=== PATIENT | male | born 1990 | race Caucasian/White ===

== ENCOUNTER 2021-08-16 18:14 | Emergency (ER) | payer BC ==
[2021-08-16 18:34] VITALS: BP 145/98; PULSE 109
--- NOTE | 2021-08-16 19:15 | EDM.PDOC ---
ED HPI GENERAL MEDICAL PROBLEM - General Chief Complaint: ENT Problem Stated Complaint: SOB EAR PAIN Time Seen by Provider: 08/16/21 18:43 Source of Information: Reports: Patient History Limitations: Reports: No Limitations - History of Present Illness INITIAL COMMENTS - FREE TEXT/NARRATIVE: Mr. 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 He then woke up this morning with significant pain in his right ear and now complete deafness in his right ear, with even worse tinnitus than usual. He also states that he feels off-balance when he ambulates, and his cough is now productive of greenish-yellowish sputum. No recent fever or chills. No dyspnea, although taking a deep breath induces a cough. The patient states that he has not taken any [id number] or home remedies to address his symptoms since their onset. At triage, the patient's initial BP was found to be mildly elevated at 145/98, with tachycardia of 109 bpm. He has a fever of 100.7 degrees. His oxygen saturation is 100% on room air. He appears to be relatively comfortable, in no acute distress. Prior to Friday, the patient denies having a recent fever, chills, sore throat, ear pain, nasal or sinus congestion, cough, dyspnea, chest pain, palpitations, nausea, vomiting, constipation, diarrhea, abdominal pain, urinary symptoms, recent weight gain or weight loss, recent bloody bowel movements or black bowel movements, recent joint aches, headaches, or rashes. The patient does not recall the name of his PCP in [place]. He has also seen Ramya Bishop NP, in [place], [place]. He has not received a COVID vaccination, nor an influenza vaccination this season. Right Ear Pain Score (Numeric/FACES): 8 - Related Data Allergies Allergy/AdvReac Type Severity Reaction Status Date / Time Penicillins Allergy Cannot Verified 08/16/21 18:35 Remember Sulfa (Sulfonamide Allergy Cannot Verified 08/16/21 18:35 Antibiotics) Remember Home Meds: Home Meds Cefdinir 1 cap PO Q12H #19 capsule 08/16/21 [Rx] Past Medical History HEENT History: Reports: Hard of Hearing (60% hearing loss left ear, 30% hearing loss right ear due to pressure-related injury around 2015) Cardiovascular History: Reports: High Cholesterol (untreated) Musculoskeletal History: Reports: Fracture (fingers, toes, right arm, left ankle, mandible, right foot) Endocrine/Metabolic History: Reports: Other (See Below) (Low testosterone) - Infectious Disease History Infectious Disease History: Reports: Novel Coronavirus - Past Surgical History HEENT Surgical History: Reports: Tonsillectomy, Other (See Below) (Mandible wired) Dermatological Surgical History: Reports: Skin Graft (right foot) Social & Family History - Tobacco Use Tobacco Use Status *Q: Former Tobacco User Years of Tobacco use: 11 Packs/Tins Daily: 3 Month/Year Tobacco Last Used: Quit 2019 Tobacco Use Comment: Started smoking 2008 - Caffeine Use Caffeine Use: Reports: Coffee - Alcohol Use Alcohol Use History: Yes Alcohol Use Frequency: Socially (occasionally to excess) - Recreational Drug Use Recreational Drug Use: Yes Drug Use in Last 12 Months: No Recreational Drug Type: Reports: Marijuana/Hashish (last smoked around 2009) - Living Situation & Occupation Living situation: Reports: , Alone Occupation: Employed ([employer]) ED ROS ENT - Review of Systems Review Of Systems: Comprehensive ROS is negative, except as noted in HPI. ED EXAM, ENT - Physical Exam Exam: See Below Exam Limited By: No Limitations General Appearance: Alert, WD/WN, No Apparent Distress Eye Exam: Bilateral Eye: EOMI, Normal Inspection Ears: Normal External Exam, Normal Canal, Other (Bilateral downing tympanic membranes with slightly flattened cones of light, but no erythema or scarring seen. Right canal slightly erythematous, but no exudates. Right mastoid process considerably tender.) Nose: Normal Inspection, No Blood, Clear Rhinorrhea Mouth/Throat: Normal Inspection, Normal Gums, Normal Lips, Normal Teeth, Pharyngeal Erythema (mildly increased erythema to the posterior oropharynx) Head: Atraumatic, Normocephalic Neck: Normal Inspection, Supple, Non-Tender, Full Range of Motion. No: Lymphadenopathy (L), Lymphadenopathy (R) Respiratory/Chest: No Respiratory Distress, Lungs Clear, Normal Breath Sounds, No Accessory Muscle Use. No: Decreased Breath Sounds, Crackles, Rhonchi, Wheezing, Prolonged Expiration Cardiovascular: Normal Peripheral Pulses, No Edema, No Gallop, No JVD, No Murmur, No Rub, Tachycardia (regular) GI/Abdominal: Normal Bowel Sounds, Soft, Non-Tender, No Organomegaly, No Distention, No Abnormal Bruit, No Mass Back: Normal Inspection, Full Range of Motion Extremities: Normal Inspection, Normal Range of Motion, No Pedal Edema, Normal Capillary Refill Neurological: Alert, Oriented, Normal Cognition, No Motor/Sensory Deficits Psychiatric: Normal Affect Skin: Warm, Dry, Intact, Normal Color, No Rash Course - Vital Signs Last Recorded V/S: Last Vital Signs Temp 38.2 C H 08/16/21 18:34 Pulse 109 H 08/16/21 18:34 Resp 18 08/16/21 18:34 BP 145/98 H 08/16/21 18:34 Pulse Ox 100 08/16/21 18:34 - Orders/Labs/Meds Labs: Laboratory Tests 08/16/21 08/16/21 08/16/21 Range/Units 18:30 18:41 19:37 WBC 10.30 H (4.23-9.07) K/mm3 RBC 5.64 (4.63-6.08) M/mm3 Hgb 15.5 (13.7-17.5) gm/dl Hct 46.5 (40.1-51.0) % MCV 82.4 (79.0-92.2) fl MCH 27.5 (25.7-32.2) pg MCHC 33.3 (32.2-35.5) g/dl RDW Std Deviation 43.6 (35.1-43.9) fL Plt Count 274 (163-337) K/mm3 MPV 9.4 (9.4-12.3) fl Neutrophils % (Manual) 75 H (40-60) % Band Neutrophils % 0 (0-10) % Lymphocytes % (Manual) 11 L (20-40) % Atypical Lymphs % 5 % Monocytes % (Manual) 9 (2-10) % Eosinophils % (Manual) 0 L (0.8-7.0) % Basophils % (Manual) 0 L (0.2-1.2) Platelet Estimate Adequate RBC Morph Comment Normal Sodium (136-145) mEq/L Potassium (3.5-5.1) mEq/L Chloride (98-107) mEq/L Carbon Dioxide (21-32) mEq/L Anion Gap (5-15) BUN (7-18) mg/dL Creatinine (0.7-1.3) mg/dL Est Cr Clr Drug Dosing mL/min Estimated GFR (MDRD) (>60) mL/min BUN/Creatinine Ratio (14-18) Glucose (70-99) mg/dL Calcium (8.5-10.1) mg/dL C-Reactive Protein (<1.0) mg/dL Influenza Type A RNA Negative (NEGATIVE) Influenza Type B RNA Negative (NEGATIVE) SARS-CoV-2 RNA (RON) Negative (NEGATIVE) Group A Strep (PCR) Detected H (NOT DETECT) 08/16/21 Range/Units 19:37 WBC (4.23-9.07) K/mm3 RBC (4.63-6.08) M/mm3 Hgb (13.7-17.5) gm/dl Hct (40.1-51.0) % MCV (79.0-92.2) fl MCH (25.7-32.2) pg MCHC (32.2-35.5) g/dl RDW Std Deviation (35.1-43.9) fL Plt Count (163-337) K/mm3 MPV (9.4-12.3) fl Neutrophils % (Manual) (40-60) % Band Neutrophils % (0-10) % Lymphocytes % (Manual) (20-40) % Atypical Lymphs % % Monocytes % (Manual) (2-10) % Eosinophils % (Manual) (0.8-7.0) % Basophils % (Manual) (0.2-1.2) Platelet Estimate RBC Morph Comment Sodium 138 (136-145) mEq/L Potassium 3.8 (3.5-5.1) mEq/L Chloride 100 (98-107) mEq/L Carbon Dioxide 24 (21-32) mEq/L Anion Gap 17.8 H (5-15) BUN 16 (7-18) mg/dL Creatinine 1.3 (0.7-1.3) mg/dL Est Cr Clr Drug Dosing 90.10 mL/min Estimated GFR (MDRD) > 60 (>60) mL/min BUN/Creatinine Ratio 12.3 L (14-18) Glucose 78 (70-99) mg/dL Calcium 8.8 (8.5-10.1) mg/dL C-Reactive Protein 2.0 H* (<1.0) mg/dL Influenza Type A RNA (NEGATIVE) Influenza Type B RNA (NEGATIVE) SARS-CoV-2 RNA (RON) (NEGATIVE) Group A Strep (PCR) (NOT DETECT) - Re-Assessments/Exams Free Text/Narrative Re-Assessment/Exam: 08/16/21 19:05 The patient reports having bilateral pressure-related ear damage, on examination, both tympanic membranes appear to be relatively normal with only slight dullness, and I see no tympanic membrane scars. He reports considerable tenderness to palpation of his right mastoid process, therefore I am concerned about right mastoiditis. A swab for the SARS-CoV-2 virus and influenza A + B viruses and a swab to test for group A strep by PCR was collected at triage. I will order a CT maxillofacial without contrast to evaluate for mastoiditis, along with some blood work and a portable chest x-ray. 08/16/21 19:34 The patient's swab for the SARS-CoV-2 virus and influenza A + B viruses is negative, however, we were notified by lab that the RSV, which is run automatically, is positive. The patient's swab for group A strep by PCR is positive. 08/16/21 19:54 CT maxillofacial without contrast is read by Dr. Munoz as: 1. Findings are suspicious for right-sided otitis media as well as possible sinusitis as described above. Specifically, the body of the report reads "Mastoid sinuses show no abnormal soft tissue thickening." Portable chest radiograph appears to be grossly normal. The cardiac silhouette is within normal limits. No pulmonary vascular congestion. No pleural effusions seen on this AP view. No focal infiltrate. No pneumothorax. Formal read per the Radiologist pending. 08/16/21 20:58 The patient's CBC is remarkable for mild leukocytosis of 10.30, but with 0% bandemia, and the remainder of his CBC being unremarkable. His BMP is unremarkable. His CRP is mildly elevated at 2.0. The patient reports hives to penicillin. I will start the patient on cefdinir, and submit a prescription for the patient to complete a 10-day course. I will refer him to Dr. Castro for ENT follow-up. 08/16/21 21:10 Test results and the above plan discussed with the patient. He is agreeable. Departure - Departure Time of Disposition: 21:10 Disposition: Home, Self-Care 01 Condition: Good Clinical Impression: RSV infection, Streptococcal pharyngitis, Otitis media, right - Discharge Information *PRESCRIPTION DRUG MONITORING PROGRAM REVIEWED*: Not Applicable *COPY OF PRESCRIPTION DRUG MONITORING REPORT IN PATIENT ASHLEY: Not Applicable Referrals: PCP,None [Primary Care Provider] - Ciro Castro MD [Ordering Only Provider] - Forms: ED Department Discharge Additional Instructions: You were seen in the emergency room for a sore throat, decreased hearing and increased tenderness in your right ear, nasal and sinus congestion, feeling off balance when walking, and a cough. Work-up in the ER included several blood tests, a swab for the SARS-CoV-2 virus and influenza A + B viruses, a swab for strep throat, a chest x-ray, and a CT of your sinuses. Your swabs tested positive for both RSV (a cold virus) and strep throat, and the CT scan found right otitis media = an infection in your right middle ear. You have been started on the antibiotic cefdinir (Omnicef), and a prescription for cefdinir has been sent to the [facility] located just so [facility] and across the [address] from [facility]. Take 1 tablet of cefdinir every 12 hours starting tomorrow morning, 08/17/2021, as prescribed. Finish the entire prescription unless told otherwise by Dr. Castro. For your sore throat, you may take aiej-mtl-xkmtivg Tylenol or ibuprofen. Consider also Chloraseptic Francisco and warm salt water gargles. Please contact the office of the [facility] [facility] (ENT) Dr. Ciro Castro in the morning, to make an appointment to be seen this coming week. If any other problems, please do not hesitate to return to the ER. Sepsis Event Note (ED) - Focused Exam Vital Signs: Vital Signs Temp Pulse Resp BP Pulse Ox 08/16/21 18:34 38.2 C H 109 H 18 145/98 H 100
[2021-08-16 19:22] LABS: CORONAVIRUS COVID-19 NAA NEGATIVE (NEGATIVE)
--- NOTE | 2021-08-16 19:45 | CT ---
CT temporal bones Technique: Multiple axial sections were obtained through the temporal bones which include the mastoid sinuses. Paranasal sinuses were almost completely included. Reconstructed coronal and sagittal images were obtained. Findings: Mucosal thickening is seen within both maxillary sinuses as well as ethmoid, sphenoid and frontal sinuses. Mild amount of fluid is felt to be present within both maxillary sinuses. Mastoid sinuses show no abnormal soft tissue thickening. Mild soft tissue density is seen within the right middle ear cavity. Left middle ear cavity is clear. Impression: 1. Findings are suspicious for right-sided otitis media as well as possible sinusitis as described above. Diagnostic code #3
--- NOTE | 2021-08-16 20:31 | CR ---
Chest: PA view of the chest was obtained. Comparison: No prior chest imaging is available. Heart size and mediastinum are normal. Lungs are clear with no acute parenchymal change. Bony structures show nothing acute. Impression: 1. Nothing acute is seen on PA chest x-ray. Diagnostic code #1
[2021-08-16] MEDS ORDERED: Cefdinir 300 MG Cap PO STA (21:07)
== END 2021-08-16 21:25 | disposition home or self-care (01) ==
LOC: JD.ED 18:14
DX: H66.91 Otitis media, unspecified, right ear (principal); J02.0 Streptococcal pharyngitis; B97.4 Respiratory syncytial virus as the cause of diseases classified elsewhere; E78.00 Pure hypercholesterolemia, unspecified; Z88.0 Allergy status to penicillin; Z88.2 Allergy status to sulfonamides; Z87.891 Personal history of nicotine dependence; Z20.822 Contact with and (suspected) exposure to COVID-19
CPT/HCPCS: 0240U; 36415; 70486; 71045; 80048; 85007; 85027; 86140; 87651; 99284

== ENCOUNTER 2023-07-17 08:43 | Emergency (ER) | payer BC ==
[2023-07-17 09:08] VITALS: BP 141/65; PULSE 105
[2023-07-17] MEDS ORDERED: Diphtheria,Pertussis(Acell),Tetanus Vaccine 0.5 ML Syringe IM ONE (09:30)
== END 2023-07-17 09:55 | disposition home or self-care (01) ==
LOC: JD.ED 08:43
DX: S67.02XA Crushing injury of left thumb, initial encounter (principal); Z23 Encounter for immunization; Z86.16 Personal history of COVID-19; Z88.0 Allergy status to penicillin; Z88.2 Allergy status to sulfonamides; W23.0XXA Caught, crushed, jammed, or pinched between moving objects, initial encounter
CPT/HCPCS: 90471; 90715; 99283; 99283-25